=== PATIENT | female | born 1960 | race Caucasian/White ===

== ENCOUNTER 2017-04-15 07:24 | Emergency (ER) | payer OTHER ==
[~2017-04-15] VITALS: Ht 165.1 cm; Wt 64.9 kg
[2017-04-15 07:41] VITALS: BP 147/80
--- NOTE | 2017-04-15 07:53 | PHYS DOC ---
Past History Past Medical History: Hypertension Past Surgical History: Cholecystectomy, Hysterectomy, Oophorectomy, Other Smoking: Non-smoker Alcohol Use: None Drug Use: None Adult General Chief Complaint Chief Complaint: FOOT INJURY PAIN HPI HPI Patient is a 56 year old female who presents with complaint of left foot pain. Patient states that approximate 6:00 this morning the patient was exiting her shower when her foot accidentally caught on the bottom of the stall, causing her to fall forward. Patient is unsure if she rolled her foot inward but states that she is currently having significant pain along the middle of her foot. Patient states she has not been able to bear weight on the foot due to pain. Patient denies any other injuries at this time. Patient rates her pain as 8 out of 10. Patient states that is localized to the middle of her foot and denies pain to the ankle. Patient has not taken any medications prior to arrival. Review of Systems Review of Systems Constitutional: Denies fever or chills [] Eyes: Denies change in visual acuity, redness, or eye pain [] HENT: Denies nasal congestion or sore throat [] Respiratory: Denies cough or shortness of breath [] Cardiovascular: Denies chest pain or edema[] GI: Denies abdominal pain, nausea, vomiting, bloody stools or diarrhea [] : Denies dysuria or hematuria [] Musculoskeletal: Left foot pain[] Integument: Denies rash or skin lesions [] Neurologic: Denies headache, focal weakness or sensory changes [] Allergies Allergies Allergies Coded Allergies Type Severity Reaction Last Updated Verified No Known Allergies Allergy Unknown 04/15/17 No Physical Exam Physical Exam Constitutional: Alert, afebrile, appears in moderate discomfort. [] HENT: Normocephalic, atraumatic, bilateral external ears normal, oropharynx moist, no oral exudates, nose normal. [] Eyes: PERRLA, EOMI, conjunctiva normal, no discharge. [] Neck: Normal range of motion, no tenderness, supple, no stridor. [] Cardiovascular:Heart rate regular rhythm, no murmur [] Lungs & Thorax: Bilateral breath sounds clear to auscultation [] Abdomen: Bowel sounds normal, soft, no tenderness, no masses, no pulsatile masses. [] Skin: Warm, dry, no erythema, no rash. [] Back: No tenderness, no CVA tenderness. [] Extremities: Moderate mid foot soft tissue swelling, tenderness to palpation along dorsum of left foot overlying second third and fourth metatarsals, sensation intact in all 5 digits of left foot, capillary refill less than 2 seconds, weightbearing not tested secondary to pain. [] Neurologic: Alert and oriented X 3, normal motor function, normal sensory function, no focal deficits noted. [] Current Patient Data Vital Signs Vital Signs Date Time Temp Pulse Resp B/P (MAP) Pulse Ox O2 Delivery O2 Flow Rate FiO2 04/15/17 07:41 97.9 77 18 99 Room Air EKG EKG Not performed[] Radiology/Procedures Radiology/Procedures [address] [address] IMAGING REPORT Signed PATIENT: EVIE SMITH ACCOUNT: [id number] : 1960 LOCATION: ER AGE: 56 SEX: F EXAM STATUS: REG ER ORD. PHYSICIAN: PRECIOUS ROSADO MD REASON: FALL/PAIN PROCEDURE: FOOT LEFT 3V EXAM: Left foot 3 views. HISTORY: Left midfoot pain after a fall. COMPARISON: None. FINDINGS: There appears to be an avulsion fracture at the insertion of the Lisfranc ligament along the medial base of the 2nd metatarsal. Midfoot alignment appears preserved. Osteopenia is at least mild. Tarsometatarsal osteoarthritis appears mild to moderate. There is a small amount of ossification at the insertion of the Achilles tendon. IMPRESSION: 1. Findings concerning for a Lisfranc fracture. Alignment is preserved. Correlation to ensure midfoot stability and follow-up through complete healing are recommended. DICTATED AND SIGNED BY: YAJAIRA DAVENPORT MD DATE: 04/15/17 0803 CC: LENI KLINE; PRECIOUS ROSADO MD ~ [] Course & Med Decision Making Course & Med Decision Making Pertinent Labs and Imaging studies reviewed. (See chart for details) Patient's left foot was placed in a posterior splint by the emergency department nurse. My evaluation post splint application showed normal capillary refill in all 5 digits of the left foot and normal sensation. Patient provided crutches in the emergency department and given instructions for strict nonweightbearing on the affected foot due to possibility of Lisfranc type fracture. The patient was referred to Dr. Encarnacion of orthopedic surgery with recommended follow-up in 5 days for reevaluation. Advised return emergency department for any worsening symptoms. Patient was understanding and in agreement with treatment plan. Dragon Disclaimer Dragon Disclaimer This chart was dictated in whole or in part using Voice Recognition software in a busy, high-work load, and often noisy Emergency Department environment. It may contain unintended and wholly unrecognized errors or omissions. Departure Departure: Impression: Primary Impression: Fracture of metatarsal of left foot, closed Disposition: HOME, SELF-CARE Condition: STABLE Referrals: LENI KLINE (PCP) LU ENCARNACION MD Patient Instructions: Metatarsal Fracture, Undisplaced Additional Instructions: You will need to follow-up in 5 days with orthopedic surgery for reevaluation. He will need to remain nonweightbearing on your left foot until you have seen the orthopedic doctor. Scripts Hydrocodone Bit/Acetaminophen (NORCO 5-325 TABLET) 1 Each Tablet 1-2 TAB PO Q4-6HRS Y for PAIN, #20 TAB Prov: PRECIOUS ROSADO MD 04/15/17 Problem Qualifiers Primary Impression: Fracture of metatarsal of left foot, closed Encounter type: initial encounter Metatarsal bone: second Fracture alignment: nondisplaced Qualified Codes: S92.325A - Nondisplaced fracture of second metatarsal bone, left foot, initial encounter for closed fracture PRECIOUS ROSADO MD Apr 15, 2017 07:53
[2017-04-15] MEDS ORDERED: NAPROXEN 500 MG TABLET PO ONE (08:00)
--- NOTE | 2017-04-15 08:08 | RAD ---
EXAM: Left foot 3 views. HISTORY: Left midfoot pain after a fall. COMPARISON: None. FINDINGS: There appears to be an avulsion fracture at the insertion of the Lisfranc ligament along the medial base of the 2nd metatarsal. Midfoot alignment appears preserved. Osteopenia is at least mild. Tarsometatarsal osteoarthritis appears mild to moderate. There is a small amount of ossification at the insertion of the Achilles tendon. IMPRESSION: 1. Findings concerning for a Lisfranc fracture. Alignment is preserved. Correlation to ensure midfoot stability and follow-up through complete healing are recommended.
[2017-04-15] MEDS ORDERED: HYDR-971 PO (08:17)
== END 2017-04-15 08:55 | disposition home or self-care (01) ==
LOC: ER 07:24
DX: S92.322A Displaced fracture of second metatarsal bone, left foot, initial encounter for closed fracture (principal); I10 Essential (primary) hypertension; W19.XXXA Unspecified fall, initial encounter; Y93.89 Activity, other specified; Y92.89 Other specified places as the place of occurrence of the external cause; Y99.8 Other external cause status
CPT/HCPCS: 29515; 73630; 99284-25

== ENCOUNTER 2017-06-01 18:06 | Emergency (ER) | payer OTHER ==
[~2017-06-01] VITALS: Ht 165.1 cm; Wt 64.9 kg
[~2017-06-01 18:06] MED LIST: HYDR-971 PO
--- NOTE | 2017-06-01 19:10 | PHYS DOC ---
Past History Past Medical History: Hypertension Past Surgical History: Cholecystectomy, Hysterectomy, Oophorectomy, Other Smoking: Non-smoker Alcohol Use: None Drug Use: None Adult General Chief Complaint Chief Complaint: MULTIPLE COMPLAINTS HPI HPI Patient is a 56-year-old female who presents to the ER today complaining of pain to her right jaw that occurred approximately 30 minutes ago. Patient portion was pain to her right upper quadrant. Patient currently reports all her symptoms completely resolved. Patient is status post a cholecystectomy. Patient has no history of diabetes lung or liver or kidney problems. Patient has had a total abdominal hysterectomy in the past. Patient reports she has a history of IBS. Patient also reports she has a herniated disc in her neck that is being followed. Patient admits to history of hypertension. Patient has any history of kidney problems coronary disease, PE or DVT. Patient reports that she was having pain in her neck and shoulders while she was working and she thought was secondary to slump over. She went to her nails done while she was getting her nails that she started experiencing pain to her jaw. Patient reports that she is also having some discomfort in her right upper quadrant so she was concerned given her history of gallbladder disease although she's had her gallbladder taken out. Patient has any chest discomfort, shortness of breath, diaphoresis, nausea. Patient denies any exertional component to this discomfort in her jaw. Patient has any ear pain. Patient has a sore throat. Review of systems: Constitutional: Denies fever or chills Eyes: Denies change in visual acuity, redness, or eye pain HENT: Denies nasal congestion or sore throat Physical exam: All other systems were reviewed and found to be within normal limits, except as documented in this note. Constitutional: Well developed, well nourished, no acute distress, non-toxic appearance. HENT: Normocephalic, atraumatic, bilateral external ears normal, oropharynx moist, no oral exudates, nose normal. Eyes: PERRLA, EOMI, conjunctiva normal, no discharge. Neck: Normal range of motion, no tenderness, supple, no stridor. Cardiovascular:Heart rate regular rhythm, Lungs & Thorax: Bilateral breath sounds clear to auscultation Abdomen: Bowel sounds normal, soft, no tenderness, no masses, no pulsatile masses. Skin: Warm, dry, no erythema, no rash. Back: No tenderness, no CVA tenderness. Extremities: No tenderness, no cyanosis, no clubbing, ROM intact, no edema. Neurologic: Alert and oriented X 3, normal motor function, normal sensory function, no focal deficits noted. Psychologic: Affect normal, judgement normal, mood normal. Patient's ER physical exam was significant for a completely normal exam. Patient has no tenderness to her gums. Patient has no soft tissue swelling. Patient has no lymphadenopathy. Patient has no rash. Patient's TMs were clear. Patient has no nuchal rigidity. Assessment and plan: This is a 56-year-old female who presents here today secondary to jaw pain. Patient currently is completely asymptomatic which is what the be reassured that this had nothing to do with her gallbladder. Patient's workup in the ED and unremarkable. Her EKG revealed normal sinus rhythm with nonspecific ST-T wave abnormalities with no evidence of ST elevation NV as interpreted by ER physician. Patient's clinically and hemodynamically stable for discharged home. Review of Systems Review of Systems \ Allergies Allergies Allergies Coded Allergies Type Severity Reaction Last Updated Verified No Known Allergies Allergy Unknown 04/15/17 No EKG EKG [] Radiology/Procedures Radiology/Procedures [] Course & Med Decision Making Course & Med Decision Making Pertinent Labs and Imaging studies reviewed. (See chart for details) [] Dragon Disclaimer Dragon Disclaimer This electronic medical record was generated, in whole or in part, using a voice recognition dictation system. Departure Departure: Impression: Primary Impression: Jaw pain, non-TMJ Additional Impression: Abdominal pain Disposition: 01 HOME, SELF-CARE Condition: STABLE Referrals: LENI KLINE (PCP) Patient Instructions: Exam, Normal, Adult Additional Instructions: The etiology of your symptoms today are not identified, but there does not appear to be an emergent etiology. PLease follow up with your doctor in 1-2 days if symptoms persist or recur. Problem Qualifiers ANN MARIE NAPOLES MD Jun 01, 2017 19:10
[2017-06-01 19:14] VITALS: BP 128/80
--- NOTE | 2017-06-01 19:19 | EKG ---
[address] [address] Test Date: 2017-06-01 Test Time: 18:56:37 Pat Name: EVIE SMITH Department: Room: Gender: F Center Machine Operator: ROSALINDA : 1960 Requested By: ANN MARIE NAPOLES Order Number: [id number] Reading MD: Carloz Andrews MD Measurements Intervals [place] Rate: 62 P: 64 NH: 146 QRS: 74 QRSD: 80 T: 57 QT: 382 QTc: 390 Interpretive Statements SINUS RHYTHM Electronically Signed On 06-02-2017 16:11:40 ARMORER TECHNICIAN by Carloz Andrews MD
== END 2017-06-01 19:23 | disposition home or self-care (01) ==
LOC: ER 18:12
DX: R68.84 Jaw pain (principal); R10.11 Right upper quadrant pain; M54.2 Cervicalgia; K58.9 Irritable bowel syndrome, unspecified; I10 Essential (primary) hypertension; M25.512 Pain in left shoulder; M25.511 Pain in right shoulder; Z90.49 Acquired absence of other specified parts of digestive tract; Z90.710 Acquired absence of both cervix and uterus; Z90.721 Acquired absence of ovaries, unilateral
CPT/HCPCS: 93005; 99283-25